=== PATIENT | female | born 1985 | race Caucasian/White ===

== ENCOUNTER → 2022-03-01 09:08 | Outpatient (CLI) | payer BC, MEDICAID, SELFPAY ==
--- NOTE | ~2022-03-01 | MMUS_ITS ---
EXAMINATION: MM diag stephany implant BI w mehran, US breast BI complete HISTORY: Palpable right breast lump TECHNIQUE: Additional 3-D tomosynthesis images of the breasts were performed and synthetic 2-D images were generated. CAD analysis was submitted and interpreted. High resolution bilateral complete breas t ultrasound was performed. COMPARISON: No prior studies for comparison. BREAST PARENCHYMAL COMPOSITION: There are bilateral subpectoral silicone implants. The breasts are he terogenously dense, which may obscure small masses FINDINGS: MAMMOGRAPHIC FINDINGS: There are no suspicious masses, calcifications or architectural distortion in either breast to sugges t malignancy. ULTRASOUND: Complete bilateral US of all 4 quadrants of the breasts and retroareolar region was reviewed. Right breast ultrasound: At 2:00, 1 cm from the nipple there is an oval hypoechoic mass measuring 3 m m with parallel orientation, no significant posterior acoustic enhancement or shadowing. Left breast: At 4:00, 5 cm from the nipple there is a hypoechoic structure measuring 4 x 1 x 4 mm, po ssibly complicated cyst or intramammary lymph node or normal superimposed fibroglandular tissue. At 1 1:00, 2 cm from the nipple there is a benign intramammary lymph node measuring 4 mm. IMPRESSION: 1. Probable benign bilateral breast masses by ultrasound. 2. Recommend 6 month follow-up limited bilateral breast ultrasound BI-RADS category 3, probably benign findings. Reviewed, dictated and finalized at location L. IMPRESSION: 1. Probable benign bilateral breast masses by ultrasound. 2. Recommend 6 month follow-up limited bilateral breast ultrasound BI-RADS category 3, probably benign findings.
== END ==
DX: N63.11 Unspecified lump in the right breast, upper outer quadrant (principal); R92.8 Other abnormal and inconclusive findings on diagnostic imaging of breast
CPT/HCPCS: 76641; 77062; 77066; G0279